=== PATIENT | male | born 1945 | race Caucasian/White ===

== ENCOUNTER 2021-03-07 11:25 | Outpatient (CLI) | payer MEDICARE, SELFPAY ==
--- NOTE | ~2021-03-07 | NM_ITS ---
EXAMINATION: NM bone scan whole body DATE: 03/07/2021 14:49 INDICATION: Malignant neoplasm of the prostate TECHNIQUE: 25.6 mCi Tc-99m HDP was administered intravenously. Delayed whole-body scintigrams were o btained. COMPARISON: There are no relevant imaging studies at our institution. FINDINGS: Mild likely degenerative joint centered increased uptake at the left acromioclavicular joint. Otherwi se normal distribution of bone and soft tissue activity. No lesion suspicious for metastatic disease. IMPRESSION: 1. No bone lesions suspicious for metastatic disease. Reviewed, dictated and finalized at location B.
== END 2021-03-07 11:26 | disposition home or self-care (01) ==
LOC: ANHIMG 11:32
PROVIDERS: PCP Family Medicine; Visit Provider Urology
DX: C61 Malignant neoplasm of prostate (principal)
CPT/HCPCS: 78306; A9561